=== PATIENT | female | born 2000 | race African-American/Black ===

== ENCOUNTER 2024-04-26 11:19 | Emergency (ER) | payer SELFPAY ==
[~2024-04-26] VITALS: Ht 165.1 cm; Wt 65.0 kg
[2024-04-26 11:21] VITALS: TEMP 98.7; O2SAT 97
[2024-04-26] MEDS ORDERED: MORPHINE SULFATE 4 MG/ML INJ (FOR IV/IM USE) IV STA (11:25)
[2024-04-26] MEDS ORDERED: ONDANSETRON HCL 4MG/2ML INJ IV STA (11:25)
[2024-04-26 11:30] VITALS: BP 118/70; PULSE 66; RESP 14; O2SAT 99
[2024-04-26] MEDS ORDERED: SODIUM CHLORIDE 0.9% 1,000 ML IV ONE (11:30)
[2024-04-26 11:52] LABS: BASOPHILS % 0.4 % (0.0-2.0); HEMOGLOBIN. 14.3 g/dL (12.0-16.0); LYMPHOCYTES % 7.2 % (20.0-50.0); MEAN CORPUSCULAR HEMOGLOBIN 27.6 pg (28.0-32.0); MEAN CORPUSCULAR HGB CONC 31.9 g/dL (31.0-37.0); MEAN CORPUSCULAR VOLUME 86.5 fL (81.0-99.0); MONOCYTES % 2.8 % (2.0-8.0); NEUTROPHILS % 89.6 % (40.0-76.0); PLATELET 400 x1000/uL (130-400); RED CELL DISTRIBUTION WIDTH 14.5 % (11.6-14.6); WHITE BLOOD COUNT 15.4 x1000/uL (4.5-11.0)
[2024-04-26 12:01] LABS: CARBON DIOXIDE 19 mEq/L (21-32); CHLORIDE 108 mEq/L (98-107); POTASSIUM 3.2 mEq/L (3.5-5.1); SODIUM 140 mEq/L (136-145)
[2024-04-26 12:02] LABS: CALCIUM 10.2 mg/dL (8.7-10.4); PROTHROMBIN TIME 11.6 sec (9.6-11.0)
[2024-04-26 12:06] LABS: CREATININE 0.6 mg/dL (0.6-1.0)
[2024-04-26 12:07] LABS: GLUCOSE 106 mg/dL (70-105); UREA NITROGEN BLOOD 9 mg/dL (9-23)
[2024-04-26 12:08] LABS: ALANINE AMINOTRANSFERASE 14 IU/L (10-49); ALBUMIN 5.3 g/dL (3.2-4.8); ASPARTATE AMINOTRANSFERASE 15 IU/L (<34)
[2024-04-26 12:09] LABS: BILIRUBIN DIRECT 0.3 mg/dL (<=3.0); BILIRUBIN TOTAL 0.8 mg/dL (0.1-1.0); PROTEIN TOTAL 8.4 g/dL (6.0-8.3)
== END 2024-04-26 12:43 | disposition left against medical advice (07) ==
LOC: ER 11:19
DX: R10.9 Unspecified abdominal pain (principal); R11.2 Nausea with vomiting, unspecified; E87.6 Hypokalemia
CPT/HCPCS: 80076; 80048; 83690; 85025; 85610; 36415; 99283; J7030; Z7610